=== PATIENT | female | born 1995 | race Caucasian/White ===

== ENCOUNTER → 2024-02-24 | Outpatient (CLI) | payer OTHER ==
[2024-02-24 14:32] LABS: BASOPHILS ABSOLUTE AUTO 0.04 K/mm3 (0.00-0.23); BASOPHILS PERCENT AUTO 1 % (0-2); EOSINOPHILS ABSOLUTE AUTO 0.19 K/mm3 (0.00-0.68); EOSINOPHILS PERCENT AUTO 2 % (0-6); Hemoglobin 11.2 g/dL (11.5-16.0); IMMATURE GRAN ABSOLUTE AUTO 0.05 K/mm3 (0.00-0.10); IMMATURE GRAN PERCENT AUTO 1 % (0-1); LYMPHOCYTES ABSOLUTE AUTO 2.34 K/mm3 (0.84-5.20); LYMPHOCYTES PERCENT AUTO 27 % (21-46); MONOCYTES ABSOLUTE AUTO 0.66 K/mm3 (0.16-1.47); MONOCYTES PERCENT AUTO 8 % (4-13); Mean Corpuscular HGB 28.7 pg (26.0-34.0); Mean Corpuscular Volume 90 fL (80-100); Mean Platelet Volume 10.1 fL (9.1-12.4); NEUTROPHILS ABSOLUTE AUTO 5.34 K/mm3 (1.96-9.15); NEUTROPHILS PERCENT AUTO 62 % (41-73); Platelet Count 366 K/mm3 (150-400); RDW Coefficient Variation 12.8 % (11.7-14.2); White Blood Cell Count 8.62 K/mm3 (4.00-11.30)
[2024-02-24 14:49] LABS: Albumin, Blood 2.7 g/dL (3.4-5.0); Albumin/Globulin Ratio 0.8 (0.8-1.8); Bilirubin, Total 0.6 mg/dL (0.1-1.0); Bun/Creatinine Ratio 10.5 (12.0-20.0); Creatinine, Blood 0.66 mg/dL (0.40-1.00); Globulin, Blood 3.2 g/dL (2.2-4.0); Potassium, Blood 3.7 mmol/L (3.5-5.5); Total Protein, Blood 5.9 g/dL (6.4-8.2)
[2024-02-24 15:33] LABS: Protein, Urine Random 61.6 mg/dL (0.0-11.9); Protein/Creat Ratio, Ur Random 0.2
== END | disposition home or self-care (01) ==
LOC: LAB SHORT 09:35 → LAB 09:35
PROVIDERS: Obstetrics & Gynecology
DX: O14.90 Unspecified pre-eclampsia, unspecified trimester (principal)
CPT/HCPCS: 80053; 82570; 84156; 85025

== ENCOUNTER → 2024-02-26 | Outpatient (CLI) | payer OTHER ==
[~2024-02-26] MED LIST: ACYC400 PO; Celexa20 MG PO; FAMO20 PO; PRENATAL TABLE1 EAC2
[2024-02-26 13:32] LABS: BASOPHILS ABSOLUTE AUTO 0.05 K/mm3 (0.00-0.23); BASOPHILS PERCENT AUTO 1 % (0-2); EOSINOPHILS ABSOLUTE AUTO 0.21 K/mm3 (0.00-0.68); EOSINOPHILS PERCENT AUTO 3 % (0-6); Hematocrit 34.8 % (33.0-51.0); Hemoglobin 11.1 g/dL (11.5-16.0); IMMATURE GRAN ABSOLUTE AUTO 0.04 K/mm3 (0.00-0.10); IMMATURE GRAN PERCENT AUTO 1 % (0-1); LYMPHOCYTES ABSOLUTE AUTO 1.98 K/mm3 (0.84-5.20); LYMPHOCYTES PERCENT AUTO 25 % (21-46); MONOCYTES ABSOLUTE AUTO 0.72 K/mm3 (0.16-1.47); MONOCYTES PERCENT AUTO 9 % (4-13); Mean Corpuscular HGB 28.5 pg (26.0-34.0); Mean Corpuscular HGB Conc 31.9 g/dL (31.5-36.5); Mean Corpuscular Volume 89 fL (80-100); Mean Platelet Volume 10.4 fL (9.1-12.4); NEUTROPHILS ABSOLUTE AUTO 4.96 K/mm3 (1.96-9.15); NEUTROPHILS PERCENT AUTO 62 % (41-73); Platelet Count 360 K/mm3 (150-400); RDW Coefficient Variation 12.9 % (11.7-14.2); RDW Standard Deviation 41.6 fL (35.1-46.3); White Blood Cell Count 7.96 K/mm3 (4.00-11.30)
[2024-02-26 15:42] LABS: Protein, Urine Random 54.4 mg/dL (0.0-11.9)
[2024-02-26 15:43] LABS: Protein/Creat Ratio, Ur Random 0.2
[2024-02-26 16:00] LABS: Albumin, Blood 2.7 g/dL (3.4-5.0); Albumin/Globulin Ratio 0.9 (0.8-1.8); Bilirubin, Total 0.5 mg/dL (0.1-1.0); Bun/Creatinine Ratio 9.1 (12.0-20.0); Calcium, Blood 8.8 mg/dL (8.5-10.1); Creatinine, Blood 0.66 mg/dL (0.40-1.00); Globulin, Blood 2.9 g/dL (2.2-4.0); Total Protein, Blood 5.6 g/dL (6.4-8.2)
== END ==
LOC: LAB SHORT 11:28 → LAB 11:28
PROVIDERS: Obstetrics & Gynecology
DX: O14.90 Unspecified pre-eclampsia, unspecified trimester (principal)
CPT/HCPCS: 80053; 82570; 84156; 85025

== ENCOUNTER 2024-03-04 07:05 | Inpatient (IN) | payer OTHER ==
[~2024-03-04] VITALS: Ht 167.6 cm; Wt 98.0 kg
[2024-03-04] VITALS (7 sets, daily range): BP systolic 87–121; BP diastolic 50–73
[2024-03-04] MEDS ORDERED: Carboprost Tromethamine 250 MCG/ML 1ML Amp IM PRN (07:20)
[2024-03-04] MEDS ORDERED: ePHEDrine Sulfate 50 MG/ML 1ML Injection XX PRN (07:20)
[2024-03-04] MEDS ORDERED: FentaNYL 2mcg/ml-Bup 0.1% Epd 250 ML EPI PRN (07:20)
[2024-03-04] MEDS ORDERED: Misoprostol 200 MCG Tab BC PRN (07:20)
[2024-03-04] MEDS ORDERED: Acetaminophen 500 MG Tab PO PRN (07:20)
[2024-03-04] MEDS ORDERED: Ondansetron HCl 2 MG / ML 2ML Vial IV PRN (07:20)
[2024-03-04] MEDS ORDERED: Misoprostol 200 MCG Tab PR PRN (07:20)
[2024-03-04] MEDS ORDERED: Methylergonovine Maleate 0.2MG / ML 1ML Amp IM PRN (07:20)
[2024-03-04] MEDS ORDERED: Lactated Ringer's 1,000 ML IV SCH ×2 (07:20)
[2024-03-04] MEDS ORDERED: Lactated Ringer's 1,000 ML IV PRN (07:20)
[2024-03-04] MEDS ORDERED: OXYTOCIN/RINGER'S LACTATE 500 ML IV PRN (07:20)
[2024-03-04] MEDS ORDERED: Oxytocin 10 Unit / ML Vial IM PRN (07:20)
[2024-03-04] MEDS ORDERED: Calcium Carbonate 500 MG Tab Chew PO SCH (07:25)
[2024-03-04 07:59] LABS: BASOPHILS ABSOLUTE AUTO 0.05 K/mm3 (0.00-0.23); BASOPHILS PERCENT AUTO 1 % (0-2); EOSINOPHILS ABSOLUTE AUTO 0.22 K/mm3 (0.00-0.68); EOSINOPHILS PERCENT AUTO 3 % (0-6); Hematocrit 31.3 % (33.0-51.0); Hemoglobin 10.4 g/dL (11.5-16.0); IMMATURE GRAN ABSOLUTE AUTO 0.04 K/mm3 (0.00-0.10); IMMATURE GRAN PERCENT AUTO 0 % (0-1); LYMPHOCYTES ABSOLUTE AUTO 2.35 K/mm3 (0.84-5.20); LYMPHOCYTES PERCENT AUTO 26 % (21-46); MONOCYTES ABSOLUTE AUTO 0.66 K/mm3 (0.16-1.47); MONOCYTES PERCENT AUTO 7 % (4-13); Mean Corpuscular HGB 28.6 pg (26.0-34.0); Mean Corpuscular HGB Conc 33.2 g/dL (31.5-36.5); Mean Corpuscular Volume 86 fL (80-100); Mean Platelet Volume 10.2 fL (9.1-12.4); NEUTROPHILS PERCENT AUTO 63 % (41-73); Platelet Count 339 K/mm3 (150-400); RDW Coefficient Variation 12.9 % (11.7-14.2); RDW Standard Deviation 39.9 fL (35.1-46.3); Red Blood Cell Count 3.64 M/mm3 (3.80-5.20); White Blood Cell Count 8.92 K/mm3 (4.00-11.30)
[2024-03-04] MEDS ORDERED: ACYC400 PO (08:01)
[2024-03-04] MEDS ORDERED: FAMO20 PO (08:01)
[2024-03-04] MEDS ORDERED: Celexa20 MG PO (08:01)
[2024-03-04] MEDS ORDERED: PRENATAL TABLE1 EAC2 (08:02)
[2024-03-04] MEDS ORDERED: Tranexamic Acid 100 ML IV SCH (08:15)
[2024-03-04] MEDS ORDERED: Misoprostol 25 MCG Tab VAG PRN (08:35)
[2024-03-04] MEDS ORDERED: Misoprostol 25 MCG Tab VAG SCH (12:00)
[2024-03-05] VITALS (13 sets, daily range): BP systolic 79–115; BP diastolic 48–63
[2024-03-05] MEDS ORDERED: Lactated Ringer's 1,000 ML IV SCH (04:00)
[2024-03-05] MEDS ORDERED: OXYTOCIN/RINGER'S LACTATE 500 ML IV SCH (04:00)
== END 2024-03-05 13:05 | disposition home or self-care (01) | DRG 832 ==
LOC: OBS 07:05 → BC 07:05 → OBS 07:25 → BC 07:29
PROVIDERS: ADMIT Obstetrics & Gynecology
DX: O99.343 Other mental disorders complicating pregnancy, third trimester (principal); O98.313 Other infections with a predominantly sexual mode of transmission complicating pregnancy, third trimester; F32.A Depression, unspecified; Z3A.39 39 weeks gestation of pregnancy; A60.09 Herpesviral infection of other urogenital tract
CPT/HCPCS: 36415; 59025; 85025; 86850; 86900; 86901; A9270

== ENCOUNTER 2024-03-08 18:52 | Inpatient (IN) | payer OTHER ==
[~2024-03-08] VITALS: Ht 167.6 cm; Wt 98.0 kg
[2024-03-08 19:24] VITALS: BP 117/72
[2024-03-08] MEDS ORDERED: Misoprostol 25 MCG Tab VAG PRN (19:30)
[2024-03-08] MEDS ORDERED: Ondansetron HCl 2 MG / ML 2ML Vial IV PRN (19:35)
[2024-03-08] MEDS ORDERED: FentaNYL 2mcg/ml-Bup 0.1% Epd 250 ML EPI PRN (19:35)
[2024-03-08] MEDS ORDERED: Misoprostol 200 MCG Tab BC PRN (19:35)
[2024-03-08] MEDS ORDERED: Carboprost Tromethamine 250 MCG/ML 1ML Amp IM PRN (19:35)
[2024-03-08] MEDS ORDERED: ePHEDrine Sulfate 50 MG/ML 1ML Injection XX PRN (19:35)
[2024-03-08] MEDS ORDERED: OXYTOCIN/RINGER'S LACTATE 500 ML IV PRN (19:35)
[2024-03-08] MEDS ORDERED: Oxytocin 10 Unit / ML Vial IM PRN (19:35)
[2024-03-08] MEDS ORDERED: Methylergonovine Maleate 0.2MG / ML 1ML Amp IM PRN (19:35)
[2024-03-08] MEDS ORDERED: Misoprostol 200 MCG Tab PR PRN (19:35)
[2024-03-08] MEDS ORDERED: Acetaminophen 500 MG Tab PO PRN (19:35)
[2024-03-08] MEDS ORDERED: FentaNYL Citrate 50 MCG/ML 2 ML Injection IV PRN (19:35)
[2024-03-08] MEDS ORDERED: Lactated Ringer's 1,000 ML IV PRN ×3 (19:35→19:40)
[2024-03-08] MEDS ORDERED: Calcium Carbonate 500 MG Tab Chew PO PRN (19:35)
[2024-03-08] MEDS ORDERED: Tranexamic Acid 100 ML IV SCH (19:35)
[2024-03-09] VITALS (23 sets, daily range): BP systolic 96–123; BP diastolic 65–78
[2024-03-09] MEDS ORDERED: OXYTOCIN/RINGER'S LACTATE 500 ML IV SCH (05:00)
[2024-03-09] MEDS ORDERED: Lactated Ringer's 1,000 ML IV SCH (05:00)
[2024-03-09] MEDS ORDERED: Naloxone HCl 0.4MG / ML 1ML Vial IV PRN (23:10)
[2024-03-09] MEDS ORDERED: DiphenhydrAMINE HCl 50 MG/ML 1ML Vial IV PRN (23:10)
[2024-03-09] MEDS ORDERED: Ondansetron HCl 2 MG / ML 2ML Vial IV PRN (23:10)
[2024-03-09] MEDS ORDERED: ePHEDrine Sulfate 50 MG/ML 1ML Injection IV PRN (23:10)
[2024-03-09] MEDS ORDERED: Metoclopramide HCl 5MG / ML 2ML Vial IV PRN (23:10)
[2024-03-09 23:21] LABS: BASOPHILS ABSOLUTE AUTO 0.05 K/mm3 (0.00-0.23); BASOPHILS PERCENT AUTO 1 % (0-2); EOSINOPHILS ABSOLUTE AUTO 0.35 K/mm3 (0.00-0.68); EOSINOPHILS PERCENT AUTO 4 % (0-6); IMMATURE GRAN ABSOLUTE AUTO 0.04 K/mm3 (0.00-0.10); IMMATURE GRAN PERCENT AUTO 1 % (0-1); LYMPHOCYTES ABSOLUTE AUTO 2.59 K/mm3 (0.84-5.20); LYMPHOCYTES PERCENT AUTO 30 % (21-46); MONOCYTES PERCENT AUTO 8 % (4-13); Mean Corpuscular HGB 28.3 pg (26.0-34.0); Mean Corpuscular HGB Conc 32.3 g/dL (31.5-36.5); Mean Corpuscular Volume 88 fL (80-100); Mean Platelet Volume 10.8 fL (9.1-12.4); NEUTROPHILS ABSOLUTE AUTO 4.96 K/mm3 (1.96-9.15); NEUTROPHILS PERCENT AUTO 57 % (41-73); Platelet Count 326 K/mm3 (150-400); RDW Coefficient Variation 13.6 % (11.7-14.2); RDW Standard Deviation 43.3 fL (35.1-46.3); Red Blood Cell Count 3.53 M/mm3 (3.80-5.20); White Blood Cell Count 8.69 K/mm3 (4.00-11.30)
[2024-03-10] VITALS (68 sets, daily range): BP systolic 97–135; BP diastolic 52–83
[2024-03-10] MEDS ORDERED: Witch Hazel/Glycerin PADS TOP PRN (11:45)
[2024-03-10] MEDS ORDERED: Ibuprofen 400 MG Tab PO PRN (11:45)
[2024-03-10] MEDS ORDERED: OXYTOCIN/RINGER'S LACTATE 500 ML IV SCH (11:45)
[2024-03-10] MEDS ORDERED: Misoprostol 200 MCG Tab PR PRN (11:45)
[2024-03-10] MEDS ORDERED: FLU VACC TS2024-25(6MOS UP)/PF 45 MCG/0.5 ML SYRINGE IM SCH (11:45)
[2024-03-10] MEDS ORDERED: Benzocaine Topical Anesthetic Spray 60GM TOP PRN (11:45)
[2024-03-10] MEDS ORDERED: Lactated Ringer's 1,000 ML IV SCH (11:50)
[2024-03-10] MEDS ORDERED: Acetaminophen 325 MG TABLET PO PRN (11:50)
[2024-03-10] MEDS ORDERED: Methylergonovine Maleate 0.2MG / ML 1ML Amp IM PRN (11:50)
[2024-03-10] MEDS ORDERED: Ketorolac Tromethamine 30mg Vial IV SCH (12:00)
[2024-03-10] MEDS ORDERED: Lanolin Cream TOP SCH (14:35)
[2024-03-11 01:06] VITALS: BP 115/69
[2024-03-11 03:51] VITALS: BP 92/53
[2024-03-11 06:39] LABS: BASOPHILS ABSOLUTE AUTO 0.04 K/mm3 (0.00-0.23); BASOPHILS PERCENT AUTO 0 % (0-2); EOSINOPHILS PERCENT AUTO 1 % (0-6); Hematocrit 27.8 % (33.0-51.0); IMMATURE GRAN ABSOLUTE AUTO 0.08 K/mm3 (0.00-0.10); IMMATURE GRAN PERCENT AUTO 1 % (0-1); LYMPHOCYTES ABSOLUTE AUTO 2.87 K/mm3 (0.84-5.20); LYMPHOCYTES PERCENT AUTO 20 % (21-46); MONOCYTES ABSOLUTE AUTO 1.06 K/mm3 (0.16-1.47); MONOCYTES PERCENT AUTO 7 % (4-13); Mean Corpuscular HGB Conc 32.4 g/dL (31.5-36.5); Mean Corpuscular Volume 86 fL (80-100); Mean Platelet Volume 9.8 fL (9.1-12.4); NEUTROPHILS ABSOLUTE AUTO 10.06 K/mm3 (1.96-9.15); NEUTROPHILS PERCENT AUTO 70 % (41-73); Platelet Count 271 K/mm3 (150-400); RDW Coefficient Variation 13.7 % (11.7-14.2); RDW Standard Deviation 42.5 fL (35.1-46.3); Red Blood Cell Count 3.22 M/mm3 (3.80-5.20); White Blood Cell Count 14.31 K/mm3 (4.00-11.30)
[2024-03-11] MEDS ORDERED: Prenatal Vit/FE Fumarate/FA 1 Tab PO SCH (09:00)
[2024-03-11 09:50] VITALS: BP 113/74
[2024-03-11 13:13] VITALS: BP 108/67
--- NOTE | 2024-03-11 13:30 | NUR ---
No acute changes t/o shift. ID bands matched w/nb and verification form. Pt and deny additional questions/concerns. Verbalize understanding of earlier d/c teaching and pp follow up. Pt d/c'd home ambulatory to care of .
== END 2024-03-11 13:30 | disposition home or self-care (01) | DRG 807 ==
LOC: OBS 18:52 → BC 18:53 → OBS 19:01 → BC 19:01
PROVIDERS: ADMIT Obstetrics & Gynecology
PROC: 10E0XZZ Delivery of Products of Conception, External Approach (ICD-10-PCS; principal; 2024-03-10)
PROC: 3E0R3BZ Introduction of Anesthetic Agent into Spinal Canal, Percutaneous Approach (ICD-10-PCS; 2024-03-10)
PROC: 00HU33Z Insertion of Infusion Device into Spinal Canal, Percutaneous Approach (ICD-10-PCS; 2024-03-10)
PROC: 0HQ9XZZ Repair Perineum Skin, External Approach (ICD-10-PCS; 2024-03-10)
DX: O70.0 First degree perineal laceration during delivery (principal); Z37.0 Single live birth; Z3A.39 39 weeks gestation of pregnancy
CPT/HCPCS: 36415; 51702; 85025; 86850; 86900; 86901; A9270; J1885; J2405; J2590; J3010; J7120